=== PATIENT | female | born 1970 | race Caucasian/White ===

== ENCOUNTER 2021-11-07 17:12 | Emergency (ER) | payer BC ==
[~2021-11-07] VITALS: Ht 160 cm; Wt 66.8 kg
[2021-11-07 18:01] LABS: BASOPHILS # (AUTO) 0.1 X10'3 (0-0.2); BASOPHILS % (AUTO) 1.6 % (0-1); EOSINOPHILS # (AUTO) 0.2 X10'3 (0-0.9); HEMATOCRIT 26.9 % (35.0-45.0); HEMOGLOBIN 8.5 g/dl (12.0-16.0); LYMPHOCYTES # (AUTO) 1.8 X10'3 (1.1-4.8); LYMPHOCYTES % (AUTO) 26.7 % (21-51); MEAN CORPUSCULAR HEMOGLOBIN 20.1 PG (27.0-31.0); MEAN CORPUSCULAR HGB CONC 31.6 g/dL (33.0-36.5); MEAN CORPUSCULAR VOLUME 63.7 FL (78-98); MEAN PLATELET VOLUME 7.8 FL (7.4-10.4); MONOCYTES # (AUTO) 0.4 X10'3 (0-0.9); MONOCYTES % (AUTO) 6.1 % (2-12); NEUTROPHILS # (AUTO) 4.3 X10'3 (1.8-7.7); NEUTROPHILS % (AUTO) 62.6 % (42-75); PLATELET COUNT 357 X10'3 (140-440); RED BLOOD COUNT 4.22 X10'6 (4.20-5.60); RED CELL DISTRIBUTION WIDTH 17.8 % (11.5-14.5); WHITE BLOOD COUNT 6.9 X10'3 (4.5-11.0)
[2021-11-07 18:18] LABS: ALANINE AMINOTRANSFERASE 18 U/L (12-78); ALBUMIN 3.9 G/DL (3.4-5.0); ALBUMIN/GLOBULIN RATIO 1.1 (1.1-1.5); ALKALINE PHOSPHATASE 40 IU/L (46-116); ANION GAP 9 (8-16); ASPARTATE AMINO TRANSFERASE 17 U/L (10-37); BILIRUBIN,TOTAL 0.4 MG/DL (0.1-1.0); BLOOD UREA NITROGEN 15 MG/DL (7-18); BUN/CREATININE RATIO 34.1 (6.6-38.0); CALCIUM 8.6 MG/DL (8.5-10.1); CHLORIDE 104 MMOL/L (99-107); CREATININE 0.44 MG/DL (0.40-0.90); GLUCOSE 111 MG/DL (70-104); POTASSIUM 3.3 MMOL/L (3.5-5.1); SODIUM 137 MMOL/L (135-145); TOTAL CARBON DIOXIDE 24.4 MMOL/L (24-32); TOTAL PROTEIN 7.3 G/DL (6.4-8.2); eGFR > 90 ML/MIN
[2021-11-07] MEDS ORDERED: acetaminophen 325mg tablet PO ONE (20:05)
[2021-11-07] MEDS ORDERED: ondansetron 4mg rapidly disintigrating tab PO ONE ×2 (20:10→21:15)
[2021-11-07 20:38] LABS: ACANTHOCYTES FEW; ANISOCYTOSIS 1+; ELLIPTOCYTES 1+; HYPOCHROMASIA 2+; MICROCYTOSIS 2+; PLATELET ESTIMATE NORMAL; POLYCHROMASIA FEW; TEAR DROP CELLS FEW
[2021-11-07] MEDS ORDERED: dexamethasone sod phosphate 10mg/ml inj IV STA (21:27)
[2021-11-07] MEDS ORDERED: ketorolac tromethamine 15mg/ml inj. IV ONE (21:30)
[2021-11-07] MEDS ORDERED: SUMAtriptan succ. 6 MG/0.5ml vial SQ ONE (21:30)
[2021-11-07] MEDS ORDERED: proCHLORperazine 10 MG/2 ml inj IV ONE (21:30)
[2021-11-07] MEDS ORDERED: diphenhydrAMINE 50 mg/ml inj IV ONE (21:30)
[2021-11-07] MEDS ORDERED: normal saline 1000ML IV soln IVB ONE (21:30)
[2021-11-07] MEDS ORDERED: SUMA25TA35 PO (22:44)
[2021-11-07] MEDS ORDERED: PROC5TAB56 PO (22:44)
[2021-11-08 00:02] VITALS: BP 134/88
== END 2021-11-08 00:07 | disposition home or self-care (01) ==
LOC: ER 17:14
DX: G43.909 Migraine, unspecified, not intractable, without status migrainosus (principal); Z88.1 Allergy status to other antibiotic agents
CPT/HCPCS: 36415; 62270; 70450; 71045; 80053; 83880; 84484; 85008; 85025; 93005; 96361; 96372; 96374; 96375; 99285; J0780; J1100; J1200; J1885; J3030; J7030